=== PATIENT | male | born 1995 | race Caucasian/White ===

== ENCOUNTER 2017-05-07 20:50 | Emergency (ER) | payer SELFPAY ==
[~2017-05-07] VITALS: Ht 162.6 cm; Wt 64.0 kg
--- NOTE | 2017-05-07 20:50 | NUR ---
PT BIB [facility], PREBOOK. TAKEN TO OF
[2017-05-07 20:52] VITALS: BP 113/50
--- NOTE | 2017-05-07 20:56 | NUR ---
Dr. Villa evaluating patient
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
[2017-05-07 21:26] VITALS: BP 113/50
--- NOTE | 2017-05-07 21:28 | NUR ---
Patient discharged with v/s stable.ACCOMPANIED BY OFFICER Written and verbal after care instructions given and explained. Patient verbalized understanding. Ambulatory with steady gait. All questions addressed prior to discharge. Advised to follow up with PMD. PT AAO, NO DISTRESS NOTED,NO SOB, PT CALM
== END 2017-05-07 21:28 ==
LOC: MED 20:50
DX: Z04.1 Encounter for examination and observation following transport accident (principal); K08.89 Other specified disorders of teeth and supporting structures; F10.129 Alcohol abuse with intoxication, unspecified; Y90.9 Presence of alcohol in blood, level not specified; V49.49XA Driver injured in collision with other motor vehicles in traffic accident, initial encounter; Y93.89 Activity, other specified; Y92.89 Other specified places as the place of occurrence of the external cause; Y99.8 Other external cause status
CPT/HCPCS: 99283